=== PATIENT | male | born 1980 | race African-American/Black ===

== ENCOUNTER 2019-10-18 11:37 | Emergency (ER) | payer MEDICAID ==
[2019-10-18] MEDS ORDERED: Aspirin 81 MG Tab.Chew PO ONE (11:45)
--- NOTE | 2019-10-18 12:08 | EDM.PDOC ---
ED HPI GENERAL MEDICAL PROBLEM - General Chief Complaint: Chest Pain Stated Complaint: POSSIBLE STROKE Time Seen by Provider: 10/18/19 11:58 Source of Information: Reports: Patient History Limitations: Reports: No Limitations - History of Present Illness INITIAL COMMENTS - FREE TEXT/NARRATIVE: This 39 yo male patient reports to the ED due to right arm stiffness, chest pain and right jaw pain. The patient reports he woke up this morning at about 10 :30 to stiffness in his right arm. While he was attempting to move his arm to get rid of the stiffness, the patient reports he had a "small twinge" of pain in his chest and in his jaw. The patient reports he currently has no symptoms. The patient reports he has a history of HTN and is on Metoprolol (25 mg). The patient reports he ran out of his medications, but he has been taking 1/4 of a 100 mg tab that he got from someone. The patient reports he took this medication and a baby aspirin this morning. The patient reports he has a strong family history of cardiac problems (father and grandfather from heart attacks). The patient reports he was drinking last night and drank way too much. Onset: Today Onset Date: 10/18/19 Onset Time: 10:30 Duration: Resolved Prior to Arrival Location: Reports: Face, Chest, Upper Extremity, Right Quality: Reports: Ache Severity: Mild Improves with: Reports: None Worsens with: Reports: None Context: Reports: Other Associated Symptoms: Reports: No Other Symptoms Treatments W[employer]OWS [employer]ER: Reports: Aspirin Right Shoulder Pain Score (Numeric/FACES): 8 - Related Data Allergies Allergy/AdvReac Type Severity Reaction Status Date / Time No Known Allergies Allergy Verified 10/18/19 11:57 Home Meds: Home Meds Aspirin [Halfprin] 81 mg PO DAILY 10/18/19 [History] Metoprolol Succinate 25 mg PO DAILY 10/18/19 [History] Social & Family History - Tobacco Use Smoking Status *Q: Current Some Day Smoker Years of Tobacco use: 1 Packs/Tins Daily: 0.1 - Recreational Drug Use Recreational Drug Use: No ED ROS GENERAL - Review of Systems Review Of Systems: Comprehensive ROS is negative, except as noted in HPI. ED EXAM, GENERAL - Physical Exam Exam: See Below Exam Limited By: No Limitations General Appearance: Alert, WD/WN, Anxious Eye Exam: Bilateral Eye: EOMI, Normal Inspection, PERRL Ears: Normal External Exam, Normal Canal, Hearing Grossly Normal, Normal TMs Nose: Normal Inspection, Normal Mucosa, No Blood Throat/Mouth: Normal Inspection, Normal Lips, Normal Teeth, Normal Gums, Normal Oropharynx, Normal Voice, No Airway Compromise Head: Atraumatic, Normocephalic Neck: Normal Inspection, Supple, Non-Tender, Full Range of Motion Respiratory/Chest: No Respiratory Distress, Lungs Clear, Normal Breath Sounds, No Accessory Muscle Use, Chest Non-Tender Cardiovascular: Normal Peripheral Pulses, Regular Rate, Rhythm, No Edema, No Gallop, No JVD, No Murmur, No Rub GI/Abdominal: Normal Bowel Sounds, Soft, Non-Tender, No Organomegaly, No Distention, No Abnormal Bruit, No Mass (Male) Exam: Deferred Rectal (Males) Exam: Deferred Back Exam: Normal Inspection, Full Range of Motion, NT Extremities: Normal Inspection, Normal Range of Motion, Non-Tender, Normal Capillary Refill, No Pedal Edema Neurological: Alert, Oriented, CN II-XII Intact, Normal Cognition, Normal Gait, Normal Reflexes, No Motor/Sensory Deficits Psychiatric: Normal Affect, Normal Mood Skin Exam: Warm, Dry, Intact, Normal Color, No Rash Lymphatic: No Adenopathy Course - Vital Signs Last Recorded V/S: Last Vital Signs Temp 35.9 C 10/18/19 11:52 Pulse 74 10/18/19 11:52 Resp 12 10/18/19 11:52 BP 141/97 H 10/18/19 11:52 Pulse Ox 96 10/18/19 11:52 - Orders/Labs/Meds Orders: Active Orders 24 hr Category Date Time Status EKG Documentation Completion [RC] URGENT Care 10/18/19 11:39 Ordered DRUG SCREEN URINE BIORAD [URCHEM] Stat Lab 10/18/19 11:39 Ordered UA RFX MARY ANNE AND CULT IF INDIC [URIN] Urgent Lab 10/18/19 11:39 Ordered Labs: Laboratory Tests 10/18/19 10/18/19 10/18/19 Range/Units 11:49 11:49 11:49 WBC 3.6 L (5.0-10.0) 10^3/uL RBC 5.22 (4.6-6.2) 10^6/uL Hgb 13.4 L (14.0-18.0) g/dL Hct 40.0 (40.0-54.0) % MCV 76.6 L (80-100) fL MCH 25.7 L (27.0-34.0) pg MCHC 33.5 (33.0-35.0) g/dL Plt Count 298 (150-450) 10^3/uL Neut % (Auto) 43.7 (42.2-75.2) % Lymph % (Auto) 39.3 (20.5-50.1) % [place] % (Auto) 13.9 H (2-8) % Eos % (Auto) 2.8 (1.0-3.0) % Baso % (Auto) 0.3 (0.0-1.0) % PT 9.9 (9.0-12.0) SEC INR 1.0 (0.9-1.2) D-Dimer, Quantitative < 100 (0-400) ng/mL Sodium 136 (135-145) mmol/L Potassium 3.4 L (3.6-5.0) mmol/L Chloride 100 L (101-111) mmol/L Carbon Dioxide 25.0 (21.0-31.0) mmol/L Anion Gap 14.4 BUN 16 (7-18) mg/dL Creatinine 1.1 (0.6-1.3) mg/dL Est Cr Clr Drug Dosing 111.38 mL/min Estimated GFR (MDRD) > 60 BUN/Creatinine Ratio 14.54 Glucose 119 H (74-105) mg/dL Calcium 9.3 (8.4-10.2) mg/dl Total Bilirubin 0.4 (0.2-1.0) mg/dL AST 30 (10-42) IU/L ALT 41 (10-60) IU/L Alkaline Phosphatase 62 (42-121) IU/L Troponin I < 0.02 (0.00-0.02) ng/ml Total Protein 7.9 (6.7-8.2) g/dl Albumin 4.3 (3.2-5.5) g/dl Globulin 3.6 Albumin/Globulin Ratio 1.19 Meds: Medications Discontinued Medications Generic Name Dose Route Start Last Admin Trade Name Freq PRN Reason Stop Dose Admin Aspirin 324 mg 10/18/19 11:45 10/18/19 11:49 Aspirin PO 10/18/19 11:46 324 mg ONETIME ONE Administration Departure - Departure Time of Disposition: 12:30 Disposition: Home, Self-Care 01 Condition: Fair Clinical Impression: Nonspecific chest pain Instructions: Nonspecific Chest Pain, [id number] Forms: ED Department Discharge Care Plan Goals: The patient was advised of the examination, lab, EKG and x-ray results during the visit. The patient was given an oral dose of Aspirin (324 mg) while in the ED. The patient was discharged with a script for Metoprolol Succinate (25 mg) # 30 to take 1 by mouth daily. The patient was encouraged to follow-up with his primary care facility. If the patient has any additional symptoms or concerns, the patient should either return to the emergency department or visit his primary care facility. Sepsis Event Note - Evaluation Sepsis Screening Result: No Definite Risk - Focused Exam Vital Signs: Vital Signs Temp Pulse Resp BP Pulse Ox 10/18/19 11:52 35.9 C 74 12 141/97 H 96 Date Exam was Performed: 10/18/19 Time Exam was Performed: 12:30 - My Orders Last 24 Hours: My Active Orders 10/18/19 11:39 EKG Documentation Completion [RC] URGENT DRUG SCREEN URINE BIORAD [URCHEM] Stat UA RFX MARY ANNE AND CULT IF INDIC [URIN] Urgent - Assessment/Plan Last 24 Hours: My Active Orders 10/18/19 11:39 EKG Documentation Completion [RC] URGENT DRUG SCREEN URINE BIORAD [URCHEM] Stat UA RFX MARY ANNE AND CULT IF INDIC [URIN] Urgent
--- NOTE | 2019-10-18 12:09 | CR ---
EXAMINATION: Chest 1V Frontal SEX: Male AGE: 39 years CLINICAL HISTORY: 39-year-old male with chest pain. INTERPRETATION: 1. Reasonable inspiratory effort obese male. External registered nurse cardiac telemetry leads. 2. Normal cardiac silhouette. No pulmonary vascular congestion, alveolar edema or dependent pleural effusion. 3. Mae thorax unremarkable (single projection). No pneumothorax or pneumomediastinum. 4. No lung mass or hilar lymphadenopathy. 5. No focal lobar pneumonia, atelectasis or collapse. CONCLUSION: No acute cardiopulmonary abnormality.
[2019-10-18 12:16] LABS: ANION GAP 14.4; CHLORIDE,CL 100 mmol/L (101-111); SODIUM,NA 136 mmol/L (135-145)
== END 2019-10-18 12:42 | disposition home or self-care (01) ==
LOC: DL.ED 11:37
DX: R07.9 Chest pain, unspecified (principal); F17.210 Nicotine dependence, cigarettes, uncomplicated
CPT/HCPCS: 36415; 71045; 80053; 84484; 85025; 85379; 85610; 93005; 99285; A9270